=== PATIENT | female | born 1945 | race Caucasian/White ===

== ENCOUNTER 2016-09-02 09:37 | Emergency (ER) | payer MEDICARE ==
[2016-09-02 09:54] VITALS: BP 136/86
--- NOTE | 2016-09-02 10:22 | UC ---
Throat Pain/Nasal Steven HPI - History of Current Complaint Chief Complaint: UCRespiratory Stated Complaint: SINUS COMPLAINT Time Seen by Provider: 09/02/16 09:49 Hx Obtained From: Patient Onset/Duration: Gradual Onset - has had nasal congestion on R side for 1 week. over past 1-2 days has gotten worse, now achey facial pain, going around eye, anf forehead. no cough, no ear or throat pain - Allergies/Home Medications Allergies/Adverse Reactions: Allergies Allergy/AdvReac Type Severity Reaction Status Date / Time No Known Allergies Allergy Verified 09/02/16 09:54 Home Medications: Home Medications Losartan TAB* [Cozaar TAB*] 25 mg PO DAILY 09/02/16 [History Confirmed 09/02/16] PMH/Surg Hx/FS Hx/Imm Hx Previously Healthy: Yes Cardiovascular History: Hypertension - Surgical History Surgical History: Yes Surgery Procedure, Year, and Place: tonsillectomy-age 25. Cyst removed from left breast (benign)-in 30s or 40s,. skin growths removed,. wisdom teeth removed. - Family History Known Family History: Positive: Hypertension - Social History Occupation: Retired Lives: With Family Alcohol Use: Weekly Substance Use Type: None Smoking Status (MU): Never Smoked Tobacco Review of Systems Constitutional: Fever - today Skin: Negative ENT: Sinus Congestion, Sinus Pain/Tenderness Respiratory: Negative Cardiovascular: Negative Gastrointestinal: Negative Neurological: Negative Psychological: Negative All Other Systems Reviewed And Are Negative: Yes Physical Exam Triage Information Reviewed: Yes Appearance: Well-Appearing, No Pain Distress, Well-Nourished Vital Signs: Initial Vital Signs Temp 99.1 F 09/02/16 09:49 Pulse 75 09/02/16 09:49 Resp 16 09/02/16 09:49 BP 136/86 09/02/16 09:49 Pulse Ox 97 09/02/16 09:49 Vital Signs Reviewed: Yes Eye Exam: Normal Eyes: Positive: Conjunctiva Clear ENT: Positive: Pharynx normal, Nasal congestion, Other: - percussion tenderness L maxillary sinus area. Negative: Nasal drainage Respiratory Exam: Normal Cardiovascular Exam: Normal Psychological Exam: Normal Skin Exam: Normal Skin: Negative: rashes Throat Pain/Nasal Course/Dx - Differential Dx/Diagnosis Differential Diagnosis/HQI/PQRI: Sinusitis, URI Provider Diagnoses: sinusitus Discharge - Discharge Plan Condition: Good Disposition: HOME Prescriptions: Cefdinir [Cefdinir 300 MG CAP] 300 mg PO BID #20 cap Patient Education Materials: Sinusitis (ED) Additional Instructions: take antibiotic as directed drink plenty of fluids return if no better 3 -5 days
== END 2016-09-02 10:27 | disposition home or self-care (01) ==
LOC: UCEAST 09:37
DX: J32.9 Chronic sinusitis, unspecified (principal)
CPT/HCPCS: 99212; G0463

== ENCOUNTER 2017-11-09 17:44 | Emergency (ER) | payer MEDICARE ==
[2017-11-09] MEDS ORDERED: Ondansetron INJ* 2 MG/ML VIAL IV ONE (19:27)
[2017-11-09] MEDS ORDERED: Morphine INJ* 2 MG/ML 1 ML SYRINGE (TWO MG - NEW SYRINGE VERSION) IV ONE (19:27)
[2017-11-09] MEDS ORDERED: NS 0.9% 1000 ML* 2,000 ML IV ONE (19:27)
[2017-11-09] MEDS ORDERED: Morphine INJ* 2 MG/ML 1 ML SYRINGE (TWO MG - NEW SYRINGE VERSION) IV PRN (19:27)
[2017-11-09] MEDS ORDERED: Ketorolac INJ* 15 MG/ML 1 ML VIAL IM ONE (19:27)
[2017-11-09 19:47] LABS: ABS Basophils 0 10^3/ul (0-0.2); ABS Eosinophils 0 10^3/ul (0-0.6); ABS Lymphocytes 0.9 10^3/ul (1.0-4.8); ABS Monocytes 0.2 10^3/ul (0-0.8); ABS Neutrophils 5.6 10^3/ul (1.5-7.7); ABS Nucleated RBC 0 10^3/ul; Eosinophil % 0.2 % (0-6); Hematocrit 39 % (35-47); Hemoglobin 13.3 g/dl (12.0-16.0); Lymphocyte % 12.8 % (25-47); Mean Corpuscular HGB Conc 34 g/dl (31-36); Mean Corpuscular Hemoglobin 29 pg (27-31); Mean Corpuscular Volume 86 fL (80-97); Nucleated Red Blood Cells % 0; Platelet Count 147 10^3/ul (150-450); Red Blood Count 4.55 10^6/ul (4.00-5.40); Red Cell Distribution Width 14 % (10.5-15); White Blood Count 6.7 10^3/ul (3.5-10.8)
--- NOTE | 2017-11-09 19:59 | ED ---
Abdominal Pain/Female - HPI Summary HPI Summary: 71 [facility] by complains of sharp left lower quadrant abdominal pain since 09:00 today, worse since 17:00 today. She states the pain radiates to her back. She rates the pain 9/10 in severity. Symptoms aggravated by walking. Symptoms alleviated by nothing. Patient states that she was working in the barn and brushing horses when she turned wrong and has been having pain since. She reports that she first thought she had pulled something in her left hip. Pain has worsened throughout the day. She has treated the pain with heat, Tylenol, and Advil [employer]APPING [employer]. She reports vomiting and chills. Patient also reports red linares on skin that she believes is from heating pad. Patient denies fever, dysuria, and abnormal bowel movements. Has hx chronic hematuria. - History of Current Complaint Chief Complaint: EDAbdPain Stated Complaint: ABD AND BACK PAIN/VOMITING Time Seen by Provider: 11/09/17 19:05 Hx Obtained From: Patient Onset/Duration: Lasting Hours - 09:00 today, Still Present, Worse Since - 17:00 today Severity Currently: Severe Pain Intensity: 9 Pain Scale Used: 0-10 Numeric Location: Discrete At: LLQ Radiates: Yes Radiates to: Back Character: Sharp Aggravating Factor(s): Other: - Walking Alleviating Factor(s): Nothing Associated Signs and Symptoms: Positive: Negative - fever, dysuria, and abnormal bowel movements., Vomiting, Other: - chills, red linares on skin Allergies/Adverse Reactions: Allergies Allergy/AdvReac Type Severity Reaction Status Date / Time No Known Allergies Allergy Verified 11/09/17 18:09 PMH/Surg Hx/FS Hx/Imm Hx Previously Healthy: No Endocrine/Hematology History: Reports: Hx Anemia - in high school Denies: Other Endocrine/Hematological Disorders Cardiovascular History: Reports: Hx Angina, Hx Hypercholesterolemia, Hx Hypertension Denies: Other Cardiovascular Problems/Disorders Respiratory History: Reports: Hx Asthma, Hx Pneumonia, Hx Seasonal Allergies, Hx Sleep Apnea - CPAP, compliance issues Denies: Other Respiratory Problems/Disorders GI History: Reports: Hx Gastroesophageal Reflux Disease Denies: Other GI Disorders History: Reports: Other Problems/Disorders - idiopathic hematuria Musculoskeletal History: Reports: Hx Arthritis, Hx Back Problems, Hx Bursitis Denies: Hx Osteoporosis, Other Musculoskeletal History Sensory History: Reports: Hx Contacts or Glasses Opthamlomology History: Reports: Hx Contacts or Glasses Neurological History: Reports: Hx Headaches - go away with coffee Denies: Other Neuro Impairments/Disorders - Cancer History Hx Chemotherapy: No Hx Radiation Therapy: No - Surgical History Surgery Procedure, Year, and Place: tonsillectomy-age 25. Cyst removed from left breast (benign)-in 30s or 40s,. skin growths removed,. wisdom teeth removed. Hx Anesthesia Reactions: No Infectious Disease History: No Infectious Disease History: Denies: Traveled Outside the [place] in Last 30 Days - Family History Known Family History: Positive: Hypertension - Social History Alcohol Use: Weekly Hx Substance Use: No Substance Use Type: Reports: None Hx Tobacco Use: No Smoking Status (MU): Never Smoked Tobacco Review of Systems Positive: Chills. Negative: Fever Gastrointestinal: Negative - abnormal bowel movements Positive: Abdominal Pain - sharp, left lower quadrant, radiates to back, Vomiting Negative: dysuria All Other Systems Reviewed And Are Negative: Yes Physical Exam - Summary Physical Exam Summary: Appearance: Well-appearing, Well-nourished, lying in bed comfortably Skin: There are a few red linares on the skin without vessels Eyes: sclera anicteric, no conjunctival pallor ENT: mucous membranes moist, pharynx appears normal Neck: Supple, nontender Respiratory: Clear to auscultation, no signs of respiratory distress Cardiovascular: Normal S1, S2. No murmurs. Normal distal pulses in tibial and radial bilaterally. Abdomen: LLQ tenderness without peritoneal signs. Musculoskeletal: Normal, Strength/ROM Intact Neurological: A&Ox3, awake and alert, mentation is normal, speech is fluent and appropriate Psychiatric: affect is normal, does not appear anxious or depressed Triage Information Reviewed: Yes Vital Signs On Initial Exam: Initial Vitals Temp Pulse Resp BP Pulse Ox 97.3 F 58 14 161/83 97 11/09/17 17:51 11/09/17 17:51 11/09/17 17:51 11/09/17 17:51 11/09/17 17:51 Vital Signs Reviewed: Yes Diagnostics - Vital Signs Vital Signs Temp Pulse Resp BP Pulse Ox 11/09/17 17:51 97.3 F 58 14 161/83 97 - Laboratory Lab Results: Lab Results 11/09/17 Range/Units 19:35 WBC 6.7 (3.5-10.8) 10^3/ul RBC 4.55 (4.00-5.40) 10^6/ul Hgb 13.3 (12.0-16.0) g/dl Hct 39 (35-47) % MCV 86 (80-97) fL MCH 29 (27-31) pg MCHC 34 (31-36) g/dl RDW 14 (10.5-15) % Plt Count 147 L (150-450) 10^3/ul MPV 9.0 (7.4-10.4) um3 Neut % (Auto) 84.4 H (38-83) % Lymph % (Auto) 12.8 L (25-47) % Lap[place] % (Auto) 2.3 (0-7) % Eos % (Auto) 0.2 (0-6) % Baso % (Auto) 0.3 (0-2) % Absolute Neuts (auto) 5.6 (1.5-7.7) 10^3/ul Absolute Lymphs (auto) 0.9 L (1.0-4.8) 10^3/ul Absolute Monos (auto) 0.2 (0-0.8) 10^3/ul Absolute Eos (auto) 0 (0-0.6) 10^3/ul Absolute Basos (auto) 0 (0-0.2) 10^3/ul Absolute Nucleated RBC 0 10^3/ul Nucleated RBC % 0 Result Diagrams: 11/09/17 19:35 11/09/17 19:35 Lab Statement: Any lab studies that have been ordered have been reviewed, and results considered in the medical decision making process. - CT Abd/Pel CT Interpretation Completed By: Radiologist - 1. No CT findings to correlate with patient's symptomatology. 2. Cholelithiasis. 3. Findings suggesting esophagitis. 4. Peripelvic renal cysts. ED physician has reviewed this report. Abdominal Pain Fem Course/Dx - Diagnoses Provider Diagnoses: Hematuria, Abdominal pain Discharge - Sign-Out/Discharge Documenting (check all that apply): Patient Departure - Discharge - Discharge Plan Condition: Good Disposition: HOME Prescriptions: Ondansetron [Zofran Odt] 8 mg PO TID PRN #12 tab.rapdis PRN Reason: Nausea Patient Education Materials: Acute Abdominal Pain (ED) Referrals: Ze Shin MD [Primary Care Provider] - (on Sunday if not improving, return to the ED sooner if worsening over the weekend) Additional Instructions: Light diet over the weekend until you are sure your symptoms are resolving. - Billing Disposition and Condition Condition: GOOD Disposition: Home - Attestation Statements Document Initiated by Wilder: Yes Documenting Scribe: Yohana Pastor Provider For Whom Wilder is Documenting (Include Credential): Maco Snowden MD Scribe Attestation: I, Yohana Pastor, scribed for Maco Snowden MD on 11/11/17 at 0118. Scribe Documentation Reviewed: Yes Provider Attestation: The documentation as recorded by the Yohana carrasquillo accurately reflects the service I personally performed and the decisions made by me, Maco Snowden MD
[2017-11-09 20:03] LABS: EGFR Non-African American 85.3 (>60)
[2017-11-09] MEDS ORDERED: Metoclopramide IV* 5 MG/ML 2 ML VIAL IV ONE (20:31)
[2017-11-09] MEDS ORDERED: Iohexol 300* (CONTRAST) 10 ML SDV IV ONE (21:28)
--- NOTE | 2017-11-09 22:05 | RAD ---
EXAM: CT Abdomen and Pelvis With Intravenous Contrast CLINICAL HISTORY: 71 years old, female; Pain; Abdominal pain; Flank; Left lower quadrant (llq); Additional info: Llq pain, suspect diverticulitis TECHNIQUE: Axial computed tomography images of the abdomen and pelvis with intravenous contrast. All CT scans at this facility use at least one of these dose optimization techniques: automated exposure control; mA and/or kV adjustment per patient size (includes targeted exams where dose is matched to clinical indication); or iterative reconstruction. Coronal and sagittal reformatted images were created and reviewed. CONTRAST: 97 mL of [id number] administered intravenously. COMPARISON: A/P W CT ABD/PEL W 09/05/2011 4:29 PM FINDINGS: Lung bases: Normal. No mass. No consolidation. Mediastinum: Thick walled distal esophagus with periesophageal stranding. ABDOMEN: Liver: Normal. No masses. Portal and hepatic veins are patent. Gallbladder and bile ducts: Multiple calcified gallstones. No wall thickening or pericholecystic fluid. Pancreas: Normal. No mass. No ductal dilation. Spleen: Normal. No splenomegaly. Adrenals: Normal. No mass. Kidneys and ureters: Bilateral peripelvic cysts largest on the left measuring 4.9 cm, previously 2.9 cm. No calculi or pelvocaliectasis. Stomach and bowel: Incompletely distended grossly normal stomach. Normal caliber small bowel. No colonic masses or segmental wall thickening. PELVIS: Appendix: Normal caliber appendix without wall thickening or adjacent inflammation. Bladder: Thin-walled bladder with no focal nodularity, perivesicular stranding, or calcifications. Reproductive: Uterus and ovaries are normal. ABDOMEN and PELVIS: Intraperitoneal space: Normal. No pneumoperitoneum. No ascities. Bones/joints: The spine demonstrates mild degenerative changes at multiple levels. No fractures. No suspicious bone lesions. Soft tissues: Normal. No hernias. Vasculature: The aorta demonstrates mild atherosclerotic calcification. Patent IVC. No abdominal aortic aneurysm. Lymph nodes: Normal. No enlarged lymph nodes. IMPRESSION: 1. No CT findings to correlate with patient's symptomatology. 2. Cholelithiasis. 3. Findings suggesting esophagitis. 4. Peripelvic renal cysts.
[2017-11-09 22:30] LABS: Urine Appearance Clear; Urine Blood 2+ (Negative); Urine Color Straw; Urine Ketones 1+ (Negative); Urine Protein Negative (Negative); Urine Red Blood Cell 3+(>10/hpf) (Absent); Urine Specific Gravity 1.033 (1.010-1.030); Urine Urobilinogen Negative (Negative); Urine White Blood Cell Trace(0-5/hpf) (Absent)
[2017-11-09 23:27] VITALS: BP 120/73
== END 2017-11-09 23:40 | disposition home or self-care (01) ==
LOC: ED 17:44
DX: R10.32 Left lower quadrant pain (principal); R31.9 Hematuria, unspecified; K80.20 Calculus of gallbladder without cholecystitis without obstruction; N28.1 Cyst of kidney, acquired
CPT/HCPCS: 36415; 74177; 80053; 81003; 81015; 83690; 85025; 87086; 96361; 96374; 96375; 99283; J1885; J2270; J2405; J2765; Q9967

== ENCOUNTER 2017-11-10 10:37 | Emergency (ER) | payer MEDICARE ==
[2017-11-10] MEDS ORDERED: HYDROcodone/ACETAMIN 5-325 MG* 1 TAB PO ONE (11:56)
[2017-11-10] MEDS ORDERED: Ondansetron TAB* 4 MG PO ONE (11:56)
--- NOTE | 2017-11-10 12:22 | ED ---
Lower Extremity - HPI Summary HPI Summary: Pt. is a 71 y.o female who presents to the ER for left hip pain x 2 days. Pt. states yesterday she bent down and twisted to brush under her horse when she developed left lower abd/pelvic pain. Associated symptoms of N/V. Pt. presented to the ER yesterday for this pain. Pt. had labs and CT abd/pelvis without acute findings. Pt. states she was rx zofran but did not pick it up yet. Pt. states today pain has localized to her left hip. She notes she is still having N/V secondary to pain. Pt. is concern for possible fx. She denies abd. pain, fever, chills, urinary symptoms. Pain does not radiate. She denies numbness, tingling or weakness in legs. Symptoms are moderate in severity. Movement makes symptoms worse. Tylenol mildly improves pain. - History of Current Complaint Chief Complaint: EDHipPelvisInjury Stated Complaint: LT HIP PAIN Time Seen by Provider: 11/10/17 11:46 Hx Obtained From: Patient Pain Intensity: 8 - Allergies/Home Medications Allergies/Adverse Reactions: Allergies Allergy/AdvReac Type Severity Reaction Status Date / Time No Known Allergies Allergy Verified 11/09/17 18:09 Home Medications: Home Medications Atorvastatin* 10 mg PO ACHS 11/10/17 [History Confirmed 11/10/17] PMH/Surg Hx/FS Hx/Imm Hx Previously Healthy: Yes Endocrine/Hematology History: Reports: Hx Anemia - in high school Denies: Hx Diabetes, Other Endocrine/Hematological Disorders Cardiovascular History: Reports: Hx Angina, Hx Hypercholesterolemia, Hx Hypertension Denies: Other Cardiovascular Problems/Disorders Respiratory History: Reports: Hx Asthma, Hx Pneumonia, Hx Seasonal Allergies, Hx Sleep Apnea - CPAP, compliance issues Denies: Other Respiratory Problems/Disorders GI History: Reports: Hx Gastroesophageal Reflux Disease Denies: Other GI Disorders History: Reports: Other Problems/Disorders - idiopathic hematuria Denies: Hx Renal Disease Musculoskeletal History: Reports: Hx Arthritis, Hx Back Problems, Hx Bursitis Denies: Hx Osteoporosis, Other Musculoskeletal History Sensory History: Reports: Hx Contacts or Glasses Opthamlomology History: Reports: Hx Contacts or Glasses Neurological History: Reports: Hx Headaches - go away with coffee Denies: Other Neuro Impairments/Disorders - Cancer History Hx Chemotherapy: No Hx Radiation Therapy: No - Surgical History Surgery Procedure, Year, and Place: tonsillectomy-age 25. Cyst removed from left breast (benign)-in 30s or 40s,. skin growths removed,. wisdom teeth removed. Hx Anesthesia Reactions: No Infectious Disease History: No Infectious Disease History: Denies: Traveled Outside the [place] in Last 30 Days - Family History Known Family History: Positive: Hypertension - Social History Occupation: Retired Lives: With Family Alcohol Use: Weekly Hx Substance Use: No Substance Use Type: Reports: None Hx Tobacco Use: No Smoking Status (MU): Never Smoked Tobacco Review of Systems Constitutional: Negative Positive: Vomiting, Nausea. Negative: Abdominal Pain, Diarrhea Genitourinary: Negative Positive: Other - Left hip pain Neurological: Negative Negative: Weakness, Paresthesia, Numbness All Other Systems Reviewed And Are Negative: Yes Physical Exam Triage Information Reviewed: Yes Vital Signs On Initial Exam: Initial Vitals Temp Pulse Resp BP Pulse Ox 97.6 F 68 14 143/70 100 11/10/17 10:48 11/10/17 10:48 11/10/17 10:48 11/10/17 10:48 11/10/17 10:48 Vital Signs Reviewed: Yes Appearance: Positive: Pain Distress - Pt. sitting on side of bed leaning to the right. Appears uncomfortable but nontoxic. present. Skin: Positive: Warm, Dry Head/Face: Positive: Normal Head/Face Inspection Eyes: Positive: Normal, EOMI Neck: Positive: Supple Musculoskeletal: Positive: Other - 5/5 strength in bilateral LEs. No midline lumbar tenderness. Mild pain over left SI joint. Pain with rotation of left hip. Neurological: Positive: Normal, CN Intact II-III Psychiatric: Positive: Affect/Mood Appropriate Diagnostics - Vital Signs Vital Signs Temp Pulse Resp BP Pulse Ox 11/10/17 10:48 97.6 F 68 14 143/70 100 - Laboratory Lab Statement: Any lab studies that have been ordered have been reviewed, and results considered in the medical decision making process. Lower Extremity Course/Dx - Course Course Of Treatment: Pt. presenting for ongoing left hip pain after bending over and twisting to brush a horse. She is afebrile and nontoxic. No neuro deficits on exam. Pt. did have CT of abd/pelvis yesterday. Pt. was not awared that CT scan evaluated left hip as well. I called and spoke with our radiologist , Dr. Smith, and he reviewed CT scan, focusing on left hip. Dr. Smith notes there are arthitic findings without signs of fracture or acute abnormality. Dr. Smith recommends MRI if pain persist. Pt. was given lortab and zofran in ED. I discussed with pt. and CT results and they are comfortable with home to f.u with ortho. Suspect possible muscle tear/strain. Rx for lortab sent. LADLE [employer]CH[employer]IC shows no red flags. Advised rest, ice, avoid bending and lifting. To call orthopedics on Sunday for an apt. To return to ER if symptoms change or worsen. Pt. and understand and agree with plan. - Diagnoses Differential Diagnosis/HQI/PQRI: Positive: Arthritis, Bursitis, Fracture (Closed ), Infection, Septic Arthritis, Sprain, Strain Provider Diagnoses: Hip injury Discharge - Sign-Out/Discharge Documenting (check all that apply): Patient Departure - Discharge Plan Condition: Good Disposition: HOME Prescriptions: HYDROcodone/ACETAMIN 5-325 MG* [Boykin 5-325 TAB*] 1 tab PO Q6H PRN #12 tab MDD 4tablets PRN Reason: Pain Patient Education Materials: Hip Pain (ED) Referrals: Ze Shin MD [Primary Care Provider] - Sterling Tang MD [Medical Doctor] - Additional Instructions: Call Dr. Tang's office tomorrow to schedule an appointment Take pain medication as directed Ice and rest hip Avoid bending and heavy lifting Return to ER if symptoms change or worsen - Billing Disposition and Condition Condition: GOOD Disposition: Home
[2017-11-10 13:44] VITALS: BP 116/63
== END 2017-11-10 13:42 | disposition home or self-care (01) ==
LOC: ED 10:37
DX: S79.912A Unspecified injury of left hip, initial encounter (principal); X50.1XXA Overexertion from prolonged static or awkward postures, initial encounter; Y93.K3 Activity, grooming and shearing an animal; Y92.9 Unspecified place or not applicable; R11.2 Nausea with vomiting, unspecified; E78.00 Pure hypercholesterolemia, unspecified
CPT/HCPCS: 99282; A9270-GY

== ENCOUNTER 2017-11-12 13:52 | Emergency (ER) | payer MEDICARE ==
--- NOTE | 2017-11-12 15:52 | ED ---
Abdominal Pain/Female - HPI Summary HPI Summary: Pt is a 71 y/o female who presents to the ED c/o left-sided abdominal pain for 3 days. She states she has been constipated and has vomited once after having a small BM. Pt took Miralax, which did not help with the constipation. She was here 3 days ago and had a CT, and diverticulitis was ruled out. She came again the next day due to extreme pain of her left side, left groin, and left hip, again nothing was found. Her current pain is rated 8/10 in severity. - History of Current Complaint Chief Complaint: EDAbdPain Stated Complaint: LT HIP/GROIN PAIN Time Seen by Provider: 11/12/17 15:43 Hx Obtained From: Patient Onset/Duration: Lasting Days - 3, Still Present Timing: Constant Severity Currently: Severe Pain Intensity: 8 Pain Scale Used: 0-10 Numeric Location: Other - Left side Radiates: No Aggravating Factor(s): Other: - No BM Alleviating Factor(s): Nothing Associated Signs and Symptoms: Positive: Constipation, Nausea, Vomiting Allergies/Adverse Reactions: Allergies Allergy/AdvReac Type Severity Reaction Status Date / Time No Known Allergies Allergy Verified 11/12/17 14:19 Home Medications: Home Medications [place] Citrate 1 tab PO DAILY 11/12/17 [History Confirmed 11/12/17] PMH/Surg Hx/FS Hx/Imm Hx Endocrine/Hematology History: Reports: Hx Anemia - in high school Denies: Hx Diabetes, Other Endocrine/Hematological Disorders Cardiovascular History: Reports: Hx Angina, Hx Hypercholesterolemia, Hx Hypertension Denies: Other Cardiovascular Problems/Disorders Respiratory History: Reports: Hx Asthma, Hx Pneumonia, Hx Seasonal Allergies, Hx Sleep Apnea - CPAP, compliance issues Denies: Other Respiratory Problems/Disorders GI History: Reports: Hx Gastroesophageal Reflux Disease Denies: Other GI Disorders History: Reports: Other Problems/Disorders - idiopathic hematuria Denies: Hx Renal Disease Musculoskeletal History: Reports: Hx Arthritis, Hx Back Problems, Hx Bursitis Denies: Hx Osteoporosis, Other Musculoskeletal History Sensory History: Reports: Hx Contacts or Glasses Opthamlomology History: Reports: Hx Contacts or Glasses Neurological History: Reports: Hx Headaches - go away with coffee Denies: Other Neuro Impairments/Disorders - Cancer History Hx Chemotherapy: No Hx Radiation Therapy: No - Surgical History Surgery Procedure, Year, and Place: tonsillectomy-age 25. Cyst removed from left breast (benign)-in 30s or 40s,. skin growths removed,. wisdom teeth removed. Hx Anesthesia Reactions: No Infectious Disease History: No Infectious Disease History: Denies: Traveled Outside the [place] in Last 30 Days - Family History Known Family History: Positive: Hypertension - Social History Alcohol Use: Weekly Hx Substance Use: No Substance Use Type: Reports: None Hx Tobacco Use: No Smoking Status (MU): Never Smoked Tobacco Review of Systems Negative: Fever Positive: Abdominal Pain, Vomiting, Nausea, Other - Constipation All Other Systems Reviewed And Are Negative: Yes Physical Exam - Summary Physical Exam Summary: Appearance: Well appearing, no pain distress Skin: warm, dry, reflects adequate perfusion Head/face: normal Eyes: EOMI, MELITON ENT: normal Neck: supple, non-tender Respiratory: CTA, breath sounds present Cardiovascular: RRR, pulses symmetrical Abdomen: mild LLQ tenderness, soft Bowel: present Musculoskeletal: normal, strength/ROM intact Neuro: normal, sensory motor intact, A&Ox3 Triage Information Reviewed: Yes Vital Signs On Initial Exam: Initial Vitals Temp Pulse Resp BP Pulse Ox 98.7 F 78 18 148/86 97 11/12/17 14:13 11/12/17 14:13 11/12/17 14:13 11/12/17 14:13 11/12/17 14:13 Vital Signs Reviewed: Yes Diagnostics - Vital Signs Vital Signs Temp Pulse Resp BP Pulse Ox 11/12/17 14:13 98.7 F 78 18 148/86 97 - Laboratory Result Diagrams: 11/12/17 16:04 11/12/17 16:04 Lab Statement: Any lab studies that have been ordered have been reviewed, and results considered in the medical decision making process. - Radiology Hip/Pelvis XR Xray Interpretation: Positive (See Comments) - MILD BILATERAL OSTEOARTHRITIC CHANGE IN THE HIPS. ED physician reviewed radiology report. Radiology Interpretation Completed By: Radiologist Abdomen XR Xray Interpretation: Positive (See Comments) - COLONIC DISTENTION. CONSIDER AN ILEUS. SUGGEST A FOLLOW-UP ABDOMINAL SERIES. ED physician reviewed radiology report. Radiology Interpretation Completed By: Radiologist - CT CT A/P CT Interpretation: Positive (See Comments) - No acute abdominal or pelvic abnormality. Cholelithiasis. Findings suggesting esophagitis. ED physician reviewed radiology report. CT Interpretation Completed By: Radiologist - EKG 18:06 Cardiac Rate: Bradycardia - 55 bpm EKG Rhythm: Sinus Rhythm EKG Interpretation: No acute changes. Abdominal Pain Fem Course/Dx - Course Course Of Treatment: Pt is a 71 y/o female who presents to the ED c/o left- sided abdominal pain for 3 days. She states she has been constipated and has vomited once after having a small BM. She was here 3 days ago, and diverticulitis was ruled out. She came again the next day due to extreme pain of her left side, left groin, and left hip, again nothing was found. A physical exam revealed mild LLQ tenderness. A hip/pelvis XR revealed MILD BILATERAL OSTEOARTHRITIC CHANGE IN THE HIPS. An abdomen XR revealed COLONIC DISTENTION. CONSIDER AN ILEUS. SUGGEST A FOLLOW-UP ABDOMINAL SERIES. An EKG revealed bradycardia at a rate of [address] A/P revealed No acute abdominal or pelvic abnormality. Cholelithiasis. Findings suggesting esophagitis. Final dx are constipation and abdominal pain. Spoke to Dr. Hoyt, who recommended an enema, and if the patient has no pain to call her back. Pt will be signed out to Dr. Tinoco. - Diagnoses Differential Diagnosis: Positive: Bowel Obstruction, Constipation, Diverticulitis, Renal Colic Provider Diagnoses: Constipation, Abdominal pain Discharge - Sign-Out/Discharge Documenting (check all that apply): Sign-Out Patient Signing out patient TO: Twin Tinoco - Discharge Plan Referrals: Ze Shin MD [Primary Care Provider] - - Attestation Statements Document Initiated by Lucioe: Yes Documenting Scribe: Corina Gusman Provider For Whom Wilder is Documenting (Include Credential): Billy Toledo MD Scribe Attestation: Corina Sorto, scribed for Billy Toledo MD on 11/12/17 at 2134. Scribe Documentation Reviewed: Yes Provider Attestation: The documentation as recorded by the Corina carrasquillo accurately reflects the service I personally performed and the decisions made by me, Billy Toledo MD
[2017-11-12 16:20] LABS: ABS Basophils 0 10^3/ul (0-0.2); ABS Eosinophils 0.1 10^3/ul (0-0.6); ABS Lymphocytes 1.7 10^3/ul (1.0-4.8); ABS Monocytes 0.5 10^3/ul (0-0.8); ABS Neutrophils 6.2 10^3/ul (1.5-7.7); ABS Nucleated RBC 0 10^3/ul; Eosinophil % 0.7 % (0-6); Hematocrit 40 % (35-47); Hemoglobin 13.5 g/dl (12.0-16.0); Lymphocyte % 19.6 % (25-47); Mean Corpuscular HGB Conc 34 g/dl (31-36); Mean Corpuscular Hemoglobin 29 pg (27-31); Mean Corpuscular Volume 85 fL (80-97); Mean Platelet Volume 8.6 um3 (7.4-10.4); Nucleated Red Blood Cells % 0; Platelet Count 170 10^3/ul (150-450); Red Blood Count 4.65 10^6/ul (4.00-5.40); Red Cell Distribution Width 14 % (10.5-15); White Blood Count 8.6 10^3/ul (3.5-10.8)
[2017-11-12 16:37] LABS: EGFR Non-African American 78.6 (>60)
--- NOTE | 2017-11-12 16:40 | RAD ---
INDICATION: Abdominal pain COMPARISON: CTA 2017 TECHNIQUE: A single view of the abdomen is submitted. FINDINGS: Bones: There are no acute bony findings. Soft tissues: The soft tissues appear normal. The psoas margins are sharp. Bowel gas pattern: There is gaseous distention likely related to an ileus. Contrast from the earlier CT examination is now in the colon and extends to the rectum. Calcifications: There are no abnormal calcifications. Other: None IMPRESSION: COLONIC DISTENTION. CONSIDER AN ILEUS. SUGGEST A FOLLOW-UP ABDOMINAL SERIES
--- NOTE | 2017-11-12 16:42 | RAD ---
INDICATION: Left hip pain. COMPARISON: Correlation is made with a prior CT of the abdomen and pelvis from November 09, 2017. TECHNIQUE: An AP view of the pelvis and frontal and lateral views of the left hip were obtained. FINDINGS: The bones are in normal alignment. No fracture is seen. There is mild bilateral osteoarthritic change in the hips. Note is made of contrast within the colon from the prior CT study. IMPRESSION: MILD BILATERAL OSTEOARTHRITIC CHANGE IN THE HIPS.
[2017-11-12 17:01] LABS: Urine Appearance Clear; Urine Blood 3+ (Negative); Urine Color Yellow; Urine Ketones 1+ (Negative); Urine Protein Negative (Negative); Urine Red Blood Cell 3+(>10/hpf) (Absent); Urine Specific Gravity 1.015 (1.010-1.030); Urine Urobilinogen Negative (Negative); Urine White Blood Cell 2+(11-20/hpf) (Absent)
[2017-11-12] MEDS ORDERED: Potassium Chlor TAB* 20 MEQ TAB.ER PO ONE ×2 (17:28→21:48)
[2017-11-12] MEDS ORDERED: Ketorolac INJ* 30 MG/ML 1 ML VIAL IV PUSH ONE (18:00)
[2017-11-12] MEDS ORDERED: NS 0.9% 1000 ML* 1,000 ML IV SCH (18:00)
[2017-11-12] MEDS ORDERED: Iohexol 300* (CONTRAST) 10 ML SDV IV ONE (19:28)
--- NOTE | 2017-11-12 21:08 | RAD ---
EXAM: CT Abdomen and Pelvis With Intravenous Contrast CLINICAL HISTORY: 71 years old, female; Pain; Abdominal pain; Epigastric; Additional info: Bowel obst. This is patients 3rd visit to er states that she has been having l groin , hip pain and lower abd pain. Was referred here from drs office. end TECHNIQUE: Axial computed tomography images of the abdomen and pelvis with intravenous contrast. All CT scans at this facility use at least one of these dose optimization techniques: automated exposure control; mA and/or kV adjustment per patient size (includes targeted exams where dose is matched to clinical indication); or iterative reconstruction. Coronal and sagittal reformatted images were created and reviewed. CONTRAST: 97 mL of [id number] administered intravenously. COMPARISON: A/P W CT ABD/PEL W 11/09/2017 9:40 PM FINDINGS: Lung bases: Unremarkable. No mass. No consolidation. Mediastinum: Esophageal wall thickening unchanged. ABDOMEN: Liver: Unremarkable. No mass. Gallbladder and bile ducts: Cholelithiasis. No ductal dilation. Pancreas: Unremarkable. No mass. No ductal dilation. Spleen: Unremarkable. No splenomegaly. Adrenals: Unremarkable. No mass. Kidneys and ureters: Bilateral peripelvic cysts, largest on the left measuring 4.9 cm unchanged. No calculi are hydronephrosis. Stomach and bowel: Unremarkable. No obstruction. No mucosal thickening. PELVIS: Appendix: Appendix is unremarkable. Bladder: Unremarkable. No mass. Reproductive: Unremarkable as visualized. ABDOMEN and PELVIS: Intraperitoneal space: Unremarkable. No free air. No significant fluid collection. Bones/joints: Degenerative changes of the spine. No acute fracture. No dislocation. Soft tissues: Unremarkable. Vasculature: Unremarkable. No abdominal aortic aneurysm. Lymph nodes: Unremarkable. No enlarged lymph nodes. IMPRESSION: No acute abdominal or pelvic abnormality. Cholelithiasis. Findings suggesting esophagitis.
[2017-11-12] MEDS ORDERED: Sodium Phosphate ADULT ENEMA* 118 ml bottle PR ONE (21:17)
[2017-11-12] MEDS ORDERED: Levofloxacin TAB* 500 MG PO ONE (22:10)
--- NOTE | 2017-11-12 22:15 | ED ---
Progress - Progress Note Progress Note: Patient was signed out to Dr. Twin Tinoco via Dr. Toledo, awaiting enema, pending disposition on 11/12/2017 at 2200. Re-Evaluation - Re-Evaluation First Eval Re-Evaluation Time: 22:12 Change: Improved Comment: Patient felt better after enema. UTI will be treated with Levaquin. Course/Dx - Course Course Of Treatment: A 71 y/o female presents to ED c/o abdominal pain. A CT A/ P revealed no acute abdominal or pelvic abnormality. Cholelithiasis. Findings suggesting esophagitis. An EKG revealed a bradycardic rate of 55 BPM, no acute changes. A Hip/Pelvis XR revealed mild bilateral osteoarthritic change in the hips. A Abdomen XR revealed colonic distention. Consider an illeus. Suggest a follow-up abdominal series. Blood work and UA were also done. In the ED course, the patient recieved Omnipaque, Toradol, Levaquin, Klor Con Er Tab, Fleet Enema and IV fluids. After enema, the patient felt much better. Patient will be discharged with a diagnosis of UTI. Patient will be sent home with Levaquin. Patient is to follow up with PCP in 1-2 days. Patient is agreeable with this plan. - Diagnoses Provider Diagnoses: UTI (urinary tract infection) Discharge - Sign-Out/Discharge Documenting (check all that apply): Patient Departure - DISCHARGE - Discharge Plan Condition: Stable Disposition: HOME Prescriptions: Levofloxacin TAB* [Levaquin TAB*] 500 mg PO DAILY #7 tab Patient Education Materials: Urinary Tract Infection in Men (ED) Referrals: Ze Shin MD [Primary Care Provider] - 2 Days Additional Instructions: FOLLOW UP WITH PRIMARY CARE PHYSICIAN IN 1-2 DAYS. TAKE MEDICATION PRESCRIBED. RETURN TO ED FOR ANY NEW OR WORSENING SYMPTOMS. - Attestation Statements Document Initiated by Scribe: Yes Documenting Scribe: Giovanny Muniz Provider For Whom Wilder is Documenting (Include Credential): Iesha Hdz Attestation: Giovanny Sorto, scribed for Twin Tinoco on 11/12/17 at 2226.
[2017-11-12 22:50] VITALS: BP 168/94
== END 2017-11-12 22:50 | disposition home or self-care (01) ==
LOC: ED 13:52
DX: N39.0 Urinary tract infection, site not specified (principal); R11.2 Nausea with vomiting, unspecified; K59.00 Constipation, unspecified; I10 Essential (primary) hypertension
CPT/HCPCS: 36415; 74018; 74177; 80053; 81003; 81015; 83605; 83690; 84484; 85025; 87086; 93005; 96374; 96375; 99283; A9270-GY; J1885; Q9967

== ENCOUNTER 2024-04-23 07:20 | Observation (INO) ==
[~2024-04-23 07:20] MED LIST: HYDROmorphone 1 MG/1 ML SYRINGE IV PRN; Naloxone 0.4 mg VIAL 0.4 mg/ml 1 ml VIAL IV PRN; Ondansetron 4 mg VIAL 2 MG/ML 2 ml VIAL IV PRN
[2024-04-23] MEDS ORDERED: Chlorhexidine MOUTHWASH 0.12% 15 ML UDC ONE (07:48)
[2024-04-23] MEDS ORDERED: fentaNYL 100 mcg/2 ml 50 MCG/ML VIAL ONE ×3 (07:54→11:52)
[2024-04-23] MEDS ORDERED: Propofol 10 MG/ML 20 ML BTL ONE (07:54)
[2024-04-23 08:06] LABS: Rapid COVID-19 Molecular Undetected (Undetected)
[2024-04-23] MEDS ORDERED: ceFAZolin 2 GM PREMIX 2 GM/50 ML BAG ONE (08:14)
[2024-04-23] MEDS: Buffered Lidocaine 1% SYRIN 1 ml INTRADERM ONE (08:24)
[2024-04-23] MEDS: Lactated Ringers 1000 ml BAG 1,000 ML IV SCH ×2 (08:24→15:02)
[2024-04-23] MEDS ORDERED: Rocuronium 50 mg VIAL 10 mg/ml 5 ml VIAL (50 mg) ONE (08:36)
[2024-04-23] MEDS ORDERED: Lidocaine 1% w EPI 1:100,000 MDV 50 ML VIAL ONE (09:09)
[2024-04-23] MEDS ORDERED: ceFAZolin VIAL VIAL ONE (09:09)
[2024-04-23] MEDS ORDERED: Sevoflurane BOTTLE ONE (09:25)
[2024-04-23] MEDS ORDERED: Esmolol 10 MG/ML 10 ML (100 mg) IV ONE (09:47)
[2024-04-23] MEDS ORDERED: Dexamethasone IV 4 MG/ML VIAL 1 ml VIAL ONE (09:50)
[2024-04-23] MEDS ORDERED: Ondansetron 4 mg VIAL 2 MG/ML 2 ml VIAL ONE (09:50)
[2024-04-23] MEDS ORDERED: Dextran 70/Hypromellose Tears Eye Drops 15 ml BTL (for Artificials Tears) BOTH EYES PRN (11:26)
[2024-04-23] MEDS ORDERED: Benzocaine/Menthol LOZ MT PRN (11:26)
[2024-04-23] MEDS ORDERED: Phenol 1.4% Throat Spray BTL MT PRN (11:26)
[2024-04-23] MEDS ORDERED: Calcium Carb (TUMS) 500 mg CHEW TAB PO PRN (11:26)
[2024-04-23] MEDS ORDERED: Morphine 2 MG/ML SYRINGE IV PRN (11:26)
[2024-04-23] MEDS ORDERED: Ondansetron 4 mg VIAL 2 MG/ML 2 ml VIAL IV PRN (11:26)
[2024-04-23] MEDS ORDERED: Albuterol HFA INHALER 8 gm MDI INH PRN (11:34)
[2024-04-23] MEDS ORDERED: Polyethylene Glycol 3350 BTL 238 GM BTL PO PRN (11:35)
[2024-04-23] MEDS: fentaNYL 100 mcg/2 ml 50 MCG/ML VIAL IV PRN (11:54)
[2024-04-23] MEDS: Acetaminophen IV 1 GM/100ML 1,000 MG/100 ML BAG IV ONE (13:14)
[2024-04-23] MEDS ORDERED: Polyethylene Glycol 3350 17 GM PACKET PO PRN (14:06)
[2024-04-23] MEDS: Fluticasone NASAL SPRAY 50MCG 16 gm SPRAY BTL INTRANASAL SCH (15:02)
[2024-04-23] MEDS: Senna TAB 8.6 mg TAB PO PRN (21:09)
[2024-04-24] MEDS: Mometasone/Formoter 100/5 MDI INH SCH (07:52)
[2024-04-24 09:51] VITALS: BP 124/65
== END 2024-04-24 10:57 | disposition home or self-care (01) ==
LOC: SSU 07:20 → OR 07:20
PROVIDERS: ADMIT Neurological Surgery; ATTEND Neurological Surgery